=== PATIENT | male | born 1975 | race Caucasian/White ===

== ENCOUNTER 2018-07-26 08:34 | Emergency (ER) | payer MEDICARE, MEDICAID, SELFPAY ==
[2018-07-26 08:36] VITALS: BP 113/82; PULSE 85; RESP 20; TEMP 36.4; O2SAT 98; BMI 22.8
--- NOTE | 2018-07-26 09:19 | NURSING ---
CALLED [facility] FOR DR GALVAN
[2018-07-26 09:35] LABS: Absolute Neutrophil Count 3.9 X10^3/uL (2.0-7.7); Basophil# 0.04 X10^3/uL; Basophil% 0.5 % (0-1); Eosinophil# 0.33 X10^3/uL; Eosinophils% 4.3 % (0-5); Hematocrit 44.2 % (40-54); Hemoglobin 14.4 g/dl (13.0-16.5); Lymphocyte % 34.8 % (19-41); Mean Corp Hgb Conc 32.6 g/gl (32-36); Mean Corpuscular Hgb 29.1 pg (27.0-32.0); Mean Corpuscular Volume 89.3 fL (80-94); Mean Platelet Vol. 9.1 fl (6.2-12.0); Monocyte# 0.74 X10^3/uL; Monocyte% 9.5 % (0-10); Neutrophil # 3.93 X10^3/uL (2.7-7.7); Neutrophil % 50.8 % (47-70); Platelet Count 300 K/mm3 (150-450); RBC Distribution Width CV 15.2 % (11.6-14.6); RBC Distribution Width SD 49.6 fl (35.1-43.9); Red Blood Count 4.95 M/mm3 (4.6-6.2); White Blood Count 7.8 K/mm3 (4.4-11.0)
[2018-07-26 09:37] LABS: POSITIVE COUNT NO; POSITIVE DIFFERENTIAL NO; POSITIVE MORPHOLOGY NO
--- NOTE | 2018-07-26 09:45 | NURSING ---
CALLED [facility] FOR DR GALVAN
[2018-07-26 09:48] LABS: Anion Gap 5 (5-15); BUN 9 mg/dL (7-18); BUN/Creat Ratio 9.8 RATIO (10-20); Calcium,Total 9.2 mg/dL (8.5-10.1); Chloride 108 mmol/L (98-107); Creatinine, Serum 0.92 mg/dL (0.70-1.30); EST Glomerular Filtration Rate 96 mL/min (>60); Est Glom Filt Rate - Afr Amer 117 mL/min (>60); Estimated Creatinine Clearance 105.08 ml/min; Glucose 83 mg/dL (74-106); Potassium 4.1 mmol/L (3.5-5.1); Sodium Level 140 mmol/L (136-145)
--- NOTE | 2018-07-26 11:07 | CM.ED ---
SOCIAL WORK NOTE FOLLOW UP WITH DR. GALVAN REGARDING PT'S VISIT. PER DR. GALVAN, PT HAS FOLLOW UP WITH [facility] THIS DAY AND VOICES NO OTHER FURTHER NEEDS.
--- NOTE | 2018-07-26 11:16 | ED.DCSUM_ITS ---
- ER Visit Summary Date of Service: 07/26/18 Chief Complaint: Medication refill History of Present Illness: The patient is a 42 M who is here from his care home. He recently relocated to a care home in the area. He is out of his medications. He has not established with a local psychiatrist. He takes Latuda 80 mg twice a day with food, benztropine 2 mg at bedtime, buspirone 5 mg 2 tablets twice a day, pantoprazole 40 mg daily, clozapine 100 mg 6 tablets at bedtime, clozapine 25 mg 1 tablet 3 times a day. Physical Examination: Patient is afebrile and vital signs are unremarkable. Alert and appropriate. Heart regular. Lungs clear. Test Results: CBC and BMP unremarkable. Emergency Department Course and Treatment: Patient was discussed with Daniel from crisis counseling. He was able to confirm the patient's medication list and get an appointment for intake today at 1 PM. Patient will be discharged with a 2- week refill of his medications. Treatment Plan: As above Disposition: Discharge Impression: 1. Medication refill This note was generated with [employer] dictation software. It may contain incorrect words, spelling, and punctuation that were not noted in review of the chart prior to signing ED Disposition - Plan for ED Patient: Chief Complaint: Med Refill Referrals: Kermit Baker MD [Primary Care Provider] -
--- NOTE | 2018-07-26 11:17 | ED.DEP ---
ED Disposition - Plan for ED Patient: Chief Complaint: Med Refill Instructions: Med Refill Prescriptions: Benztropine [Cogentin] 2 mg PO QHS #14 tab Clozapine 600 mg PO QHS #84 tab Pantoprazole Sodium 40 mg PO DAILY #14 tablet. busPIRone [Buspar] 10 mg PO BID #56 tab Lurasidone HCl [Latuda] 80 mg PO BID #28 tab Clozapine 25 mg PO TID #42 tab Additional Instructions: follow up today at 1pm as directed by counseling
== END 2018-07-26 11:34 | disposition home or self-care (01) ==
PROVIDERS: Emergency Provider Emergency Medicine; Family Provider Family Medicine; PCP Family Medicine
DX: Z76.0 Encounter for issue of repeat prescription (principal); Z79.899 Other long term (current) drug therapy
CPT/HCPCS: 80048; 85025; 99282

== ENCOUNTER 2018-11-29 10:50 | Emergency (ER) | payer MEDICARE, MEDICAID, SELFPAY ==
[2018-11-29 10:51] VITALS: BP 117/71; PULSE 91; RESP 18; TEMP 36.6; O2SAT 97; BMI 22.2
--- NOTE | 2018-11-29 11:04 | ED.VISSUMM ---
- ER Visit Summary Date of Service: 11/29/18 Chief Complaint: Mental health clearance History of Present Illness: The patient is a 43 M who was living in a detention for psychiatric disease, he left there 2 days ago and has been living on the streets ever since Police Department found today. Patient has no complaints he actually just wants to leave. He is cooperative however, he is lucid and coherent he denies any drug or alcohol use. He tells me he does not want to go back to the detention since they accused him of stuff he did not do. He denies any systemic complaints. Physical Examination: Not appear in acute distress. He is unkept Moist mucous membranes, no obvious facial deformity No C-spine tenderness supple neck. Regular rate and rhythm without any obvious murmurs Clear lungs bilaterally speaking in full sentences without any obvious respiratory distress Abdomen soft and nontender no guarding or rebound Moves all extremities without any difficulty or pain. Skin does not show any obvious rashes or lesions, no trauma. Alert oriented ?3 with no gross focal deficit He has an odd affect, however he is lucid coherent tells me good history of events. He denies any hallucinations. Emergency Department Course and Treatment: Patient will be medically cleared, per detention request. He will be evaluated, at this time I believe the patient to be able to make his own decision, he is lucid coherent he is slightly delusional but has no hallucination has no suicidal homicidal ideation. Plan is to discharge him either to the detention on his own volition. Impression: Bipolar disorder Medical clearance This note was generated with [employer] dictation software. It may contain incorrect words, spelling, and punctuation that were not noted in review of the chart prior to signing ED Disposition - Plan for ED Patient: Referrals: Kermit Baker MD [Primary Care Provider] -
[2018-11-29 11:09] VITALS: RESP 17
--- NOTE | 2018-11-29 11:10 | ED.DCSUM_ITS ---
- ER Visit Summary Date of Service: 11/29/18 Chief Complaint: Mental health clearance History of Present Illness: The patient is a 43 M who was living in a snf for psychiatric disease, he left there 2 days ago and has been living on the streets ever since Police Department found today. Patient has no complaints he actually just wants to leave. He is cooperative however, he is lucid and coherent he denies any drug or alcohol use. He tells me he does not want to go back to the snf since they accused him of stuff he did not do. He denies any systemic complaints. Physical Examination: Not appear in acute distress. He is unkept Moist mucous membranes, no obvious facial deformity No C-spine tenderness supple neck. Regular rate and rhythm without any obvious murmurs Clear lungs bilaterally speaking in full sentences without any obvious respiratory distress Abdomen soft and nontender no guarding or rebound Moves all extremities without any difficulty or pain. Skin does not show any obvious rashes or lesions, no trauma. Alert oriented ?3 with no gross focal deficit He has an odd affect, however he is lucid coherent tells me good history of events. He denies any hallucinations. Emergency Department Course and Treatment: Patient will be medically cleared, per snf request. He will be evaluated, at this time I believe the patient to be able to make his own decision, he is lucid coherent he is slightly delusional but has no hallucination has no suicidal homicidal ideation. Plan is to discharge him either to the snf on his own volition. Impression: Bipolar disorder Medical clearance This note was generated with [employer] dictation software. It may contain incorrect words, spelling, and punctuation that were not noted in review of the chart prior to signing ED Disposition - Plan for ED Patient: Referrals: Kermit Baker MD [Primary Care Provider] -
[2018-11-29 11:22] LABS: Absolute Lymphocyte Count 2.45 X10^3/ul (0.83-4.51); Absolute Neutrophil Count 11.9 X10^3/uL (2.0-7.7); Basophil# 0.04 X10^3/uL; Basophil% 0.3 % (0-1); Eosinophil# 0.29 X10^3/uL; Eosinophils% 1.8 % (0-5); Hematocrit 37.3 % (40-54); Hemoglobin 12.7 g/dl (13.0-16.5); Lymphocyte # 2.45 X10^3/ul (4.0); Lymphocyte % 15.5 % (19-41); Mean Corpuscular Hgb 29.8 pg (27.0-32.0); Mean Corpuscular Volume 87.6 fL (80-94); Mean Platelet Vol. 8.5 fl (6.2-12.0); Monocyte# 1.11 X10^3/uL; Neutrophil % 75.1 % (47-70); Platelet Count 298 K/mm3 (150-450); RBC Distribution Width CV 16.1 % (11.6-14.6); RBC Distribution Width SD 51.3 fl (35.1-43.9); Red Blood Count 4.26 M/mm3 (4.6-6.2); White Blood Count 15.8 K/mm3 (4.4-11.0)
[2018-11-29 11:23] LABS: POSITIVE COUNT NO; POSITIVE DIFFERENTIAL NO; POSITIVE MORPHOLOGY NO
--- NOTE | 2018-11-29 11:33 | CM.ED ---
SOCIAL WORK DISCUSSED CASE WITH NURSE AND DR. MINA. CRISIS TO EVALUATE PATIENT ONCE MEDICALLY CLEARED. NINFA LEUNG, PREVENTIVE MAINTENANCE COORDINATOR, BLENDER MACHINE OPERATOR.
[2018-11-29 11:38] LABS: Anion Gap 5 (5-15); BUN 17 mg/dL (7-18); BUN/Creat Ratio 19.9 RATIO (10-20); Calcium,Total 8.5 mg/dL (8.5-10.1); Chloride 108 mmol/L (98-107); Creatinine, Serum 0.86 mg/dL (0.70-1.30); EST Glomerular Filtration Rate 104 mL/min (>60); Est Glom Filt Rate - Afr Amer 126 mL/min (>60); Estimated Creatinine Clearance 111.27 ml/min; Glucose 110 mg/dL (74-106); Sodium Level 138 mmol/L (136-145)
[2018-11-29 11:47] LABS: Alcohol, Blood (Medical)-Serum < 3.0 mg/dL
[2018-11-29 12:34] LABS: Amphetamine Urine VISTA NEGATIVE (<1000 ng/mL); Barbiturate Urine VISTA NEGATIVE (< 200 ng/mL); Benzodiazepine Urine VISTA NEGATIVE (< 200 ng/mL); Cocaine Urine VISTA NEGATIVE (< 300 ng/mL); Ecstacy Urine VISTA NEGATIVE (< 500 ng/mL); Methadone Urine VISTA NEGATIVE (< 300 ng/mL); PCP Urine VISTA NEGATIVE (< 25 ng/mL); THC Urine VISTA NEGATIVE (< 50 ng/mL); Vista UDS pH Range 6
--- NOTE | 2018-11-29 12:57 | NURSING ---
CALLED [facility], TALKED TO DULCE
--- NOTE | 2018-11-29 13:24 | NURSING ---
DULCE, ANTHONY, CALLED. SHE WILL BE HERE ABOUT 1405
[2018-11-29 14:08] VITALS: RESP 14
--- NOTE | 2018-11-29 14:33 | NURSING ---
1425 DULCE, ANTHONY, HERE
--- NOTE | 2018-11-29 15:34 | ED.DEP ---
ED Disposition - Plan for ED Patient: Disposition: Home or Assisted Living Instructions: ED Schizophrenia General Referrals: Kermit Baker MD [Primary Care Provider] -
== END 2018-11-29 15:37 | disposition home or self-care (01) ==
PROVIDERS: Emergency Provider Emergency Medicine; Family Provider Family Medicine; PCP Family Medicine
DX: F31.9 Bipolar disorder, unspecified (principal); Z72.0 Tobacco use
CPT/HCPCS: 80048; 80307; 80320; 85025; 99285; G0480

== ENCOUNTER 2019-01-01 07:03 | Observation (INO) | payer MEDICARE, MEDICAID, SELFPAY ==
[2019-01-01] VITALS (8 sets, daily range): BP systolic 126–143; BP diastolic 83–93; PULSE 64–90; RESP 13–18; TEMP 36.3–37; O2SAT 92–98; BMI 21.5; BMI 21.2; BMI 21.3
--- NOTE | 2019-01-01 07:25 | RAD_ITS ---
STUDY: X-RAY CHEST REASON FOR EXAM: Male, 43 years old. Cough. TECHNIQUE: AP and lateral views of the chest. COMPARISON: None. FINDINGS: EKG electrodes are seen. Elevation of the right hemidiaphragm. Minimal increased linear markings at the lung bases suggestive of linear atelectasis. There is no demonstrated pleural abnormality. Normal size heart. Normal mediastinum and delroy. Normal visualized pulmonary arteries. Normal visualized aortic arch and descending thoracic aorta. Normal visualized thoracic spine. Normal visualized ribs, clavicles, and shoulders. There is no demonstrated abnormality of the visualized soft tissue structures of the upper abdomen. RAD/Chest PA and Lateral IMPRESSION: Findings suggestive of linear atelectasis at the lung bases. Electronically Signed: Simeon Obando, at 8:26 EDT , Service support ,
--- NOTE | 2019-01-01 07:29 | NURSING ---
CALLED [facility] PER DR PRINGLE
--- NOTE | 2019-01-01 07:43 | CT_ITS ---
STUDY: CT BRAIN WITHOUT CONTRAST REASON FOR EXAM: Male, 43 years old. Confusion. Slurred speech. Altered level of consciousness. RADIATION DOSAGE (If Supplied By Facility): CTDIvol = ( 44.99 ) mGy, DLP = ( 796.11 ) mGycm TECHNIQUE: Transaxial CT imaging of the brain was performed without administration of intravenous contrast material. Individualized dose optimization techniques were used for this CT. COMPARISON: No relevant priors. FINDINGS: Normal soft tissue structures. Normal calvarium. Normal size ventricles and extra-axial spaces for the patient's age. Normal white matter tracts of the cerebral hemispheres. Normal basal ganglia and thalami. Normal brainstem. Normal cerebellum. There is no intracranial hemorrhage. There are no findings of an acute ischemic infarction. Normal visualized paranasal sinuses. CT/Brain/Head without Contrast IMPRESSION: Normal unenhanced CT scan of the brain. Electronically Signed: Simeon Obando, at 8:27 EDT , Service support ,
[2019-01-01 07:52] LABS: Basophil% 0.3 % (0-1); Hematocrit 41.4 % (40-54); Lymphocyte % 16.5 % (19-41); Mean Corp Hgb Conc 33.8 g/gl (32-36); Mean Corpuscular Hgb 30.2 pg (27.0-32.0); Mean Corpuscular Volume 89.2 fL (80-94); Mean Platelet Vol. 8.9 fl (6.2-12.0); Monocyte% 11.5 % (0-10); Neutrophil % 70.5 % (47-70); POSITIVE COUNT NO; POSITIVE DIFFERENTIAL NO; POSITIVE MORPHOLOGY NO; Platelet Count 300 K/mm3 (150-450); RBC Distribution Width CV 15.8 % (11.6-14.6); RBC Distribution Width SD 51.6 fl (35.1-43.9); Red Blood Count 4.64 M/mm3 (4.6-6.2); White Blood Count 11.7 K/mm3 (4.4-11.0)
--- NOTE | 2019-01-01 07:52 | NURSING ---
[facility], [facility], FOR DR PRINGLE
[2019-01-01 07:53] LABS: Absolute Lymphocyte Count 1.93 X10^3/ul (0.83-4.51); Absolute Neutrophil Count 8.2 X10^3/uL (2.0-7.7); Lymphocyte # 1.93 X10^3/ul (4.0); Neutrophil # 8.23 X10^3/uL (2.7-7.7)
[2019-01-01 07:54] LABS: ALB/GLOB Ratio 0.9 RATIO (0.9-2.4); AST(SGOT) 14 U/L (15-37); Alanine Aminotransfer ALT/SGPT 26 U/L (16-61); Albumin, Serum 3.4 g/dL (3.2-5.0); Alkaline Phosphatase 141 U/L (45-117); Anion Gap 5 (5-15); BUN 13 mg/dL (7-18); BUN/Creat Ratio 19.8 RATIO (10-20); Calcium,Total 9.1 mg/dL (8.5-10.1); Chloride 109 mmol/L (98-107); Creatinine, Serum 0.66 mg/dL (0.70-1.30); EST Glomerular Filtration Rate 141 mL/min (>60); Est Glom Filt Rate - Afr Amer 171 mL/min (>60); Estimated Creatinine Clearance 140.32 ml/min; Globulin 3.6 g/dL (2.2-4.2); Glucose 113 mg/dL (74-106); Potassium 3.9 mmol/L (3.5-5.1); Sodium Level 141 mmol/L (136-145)
--- NOTE | 2019-01-01 08:17 | ED.VISSUMM ---
- ER Visit Summary Date of Service: 01/01/19 Chief Complaint: Slurred speech and lethargy History of Present Illness: The patient is a 43 M who goes to the counseling center. He also sees Dr. Baker and Dr. Gan. The patient was living at a shelter until November 29 and has been living on the streets since then. He was at [facility] and last night states that he started a new medication and took his first dose. However, looking at his bubble packs it looks like he has been on these medications for approximately 3 days. Last night he took 600 mg of closet pain and 2 mg of benztropine. He is also supposed to be on 25 mg of clozapine 3 times daily, Latuda, and BuSpar. Staff at [facility] found that the patient was lethargic and had slurred speech this morning. He denies any other complaints. However, he is difficult to understand. Physical Examination: Vitals: Stable. Afebrile. General: Well-nourished and well-developed. Head: Normocephalic atraumatic. Neck: Supple, no lymphadenopathy. No JVD. Nontender. Cardiovascular: Regular rate and rhythm. No murmurs. Respiratory: No respiratory distress. Clear to auscultation bilaterally. Abdominal: Soft, nontender, nondistended, normal bowel sounds. No guarding, rebound, or peritoneal signs. Back: Nontender. Extremities: Nontender, no edema. Skin: Normal color, no rash. Neurologic: Lethargic, but arouses to voice. Moves all extremities well. Normal gait. Test Results: CBC shows a white count of 11.7 with 71 segmented neutrophils, 17 lymphocytes, 12 monocytes. Chem-7 shows a chloride of 109, glucose 113, creatinine 0.66. LFTs show an alk phos of 141 and AST of 14. CT brain shows no acute disease. Chest x-ray shows atelectasis without infiltrate. Alcohol is negative. CTA head is normal. CTA neck is normal. Emergency Department Course and Treatment: Patient has been observed over the course of two hours in the emergency department. He is speech is unchanged. The patient is very difficult to understand. At this time it is unclear whether or not this may be medication induced. There is also the possibility of an expressive a aphasia from a stroke. However, the onset of this is unclear as it was present when he woke. He is not a TPA candidate due to timeframe and the confounding medication issue. Treatment Plan: The patient will be admitted to the hospital for observation and potentially further stroke evaluation. Disposition: Admitted in stable condition. Impression: 1. Slurred speech. This note was generated with [employer] dictation software. It may contain incorrect words, spelling, and punctuation that were not noted in review of the chart prior to signing ED Disposition - Plan for ED Patient: Referrals: Megha Vega MD [Primary Care Provider] -
[2019-01-01 08:37] LABS: Alcohol, Blood (Medical)-Serum < 3.0 mg/dL
--- NOTE | 2019-01-01 09:17 | CT_ITS ---
STUDY: CTA OF THE BRAIN REASON FOR EXAM: Male, 43 years old. Slurred speech. Confusion. RADIATION DOSAGE (If Supplied By Facility): CTDIvol = ( 16.56 ) mGy, DLP = ( 600.60 ) mGycm TECHNIQUE: CT angiography was performed with a multi-detector CT scanner. Data acquisition was obtained from the skull base through the vertex following intravenous administration of 100ML IV Isovue 370. MIP images were reconstructed from the axial data set. Post-processing of the angiographic images was performed, with multiplanar reformation and 3D reconstruction. Individualized dose optimization techniques were used for this CT. COMPARISON: None. FINDINGS: Normal bilateral petrous carotid arteries. There is calcified plaque formation of the right cavernous carotid artery, without a cross-sectional luminal stenosis. Normal left cavernous carotid artery with a normal supraclinoid bifurcation. Normal right A1 segments of the anterior cerebral artery. Normal left A1 segments of the anterior cerebral artery. Normal intact anterior communicating artery (ACOM). Normal bilateral A2 segments of the anterior cerebral arteries. Normal right M1 and M2 segments of the middle cerebral arteries, with a normal M1 bifurcation. Normal left M1 and M2 segments of the middle cerebral arteries, with a normal M1 bifurcation. Normal right posterior communicating artery (PCOM). Normal left posterior communicating artery (PCOM). Normal bilateral vertebral arteries. Normal basilar artery with a normal basilar bifurcation. The visualized bilateral superior cerebellar (SCA) arteries are normal. Normal bilateral P1, P2 and visualized P3 segments of the posterior cerebral arteries. There is no demonstrated aneurysm of the [place]. There is no demonstrated abnormality of the visualized brain. IMPRESSION: Normal [place] without a demonstrated aneurysm or hemodynamically significant stenosis. Electronically Signed: Simeon Obando, at 10:15 EDT , Service support , STUDY: CTA NECK WITH CONTRAST REASON FOR EXAM: Male, 43 years old. Slurred speech. Weakness. RADIATION DOSAGE (If Supplied By Facility): CTDIvol = ( 16.8 ) mGy, DLP = ( 600.60 ) mGycm TECHNIQUE: CT angiography with multi-detector data acquisition was performed from the aortic arch to the skull base following intravenous administration of 100ml IV Isovue 370. MIP images were reconstructed from the axial data set. Post-processing of the angiographic images was performed, with multiplanar reformation and 3D reconstruction. Individualized dose optimization techniques were used for this CT. COMPARISON: None. FINDINGS: AORTIC ARCH: There is mild atherosclerotic calcific plaque formation of the aortic arch and great vessels arising from the aortic arch, without a hemodynamically significant stenosis. There is a normal origin of the brachiocephalic, left common carotid, and left subclavian arteries. RIGHT CAROTID ARTERIES: Normal right common carotid artery (CCA). Normal right common carotid bulb. There is mild atherosclerotic plaque formation of the origin of the right internal carotid artery with less than 50% cross sectional diameter stenosis. Normal visualized cervical portion of the right internal carotid artery. Normal origin of the right external carotid artery (ECA). LEFT CAROTID ARTERIES: Normal left common carotid artery (CCA). Normal left common carotid bulb. Normal origin of the left internal carotid (ICA) artery without a hemodynamically significant stenosis. Normal visualized cervical portion of the left internal carotid artery. Normal origin of the left external carotid artery (ECA). VERTEBRAL ARTERIES: Normal bilateral vertebral arteries. CT/CTA Neck W/WO Contrast IMPRESSION: Minimal atherosclerotic plaque at the origin of the right internal carotid artery. Electronically Signed: Simeon Obando, at 10:18 EDT , Service support ,
--- NOTE | 2019-01-01 09:17 | CT_ITS ---
STUDY: CTA OF THE BRAIN REASON FOR EXAM: Male, 43 years old. Slurred speech. Confusion. RADIATION DOSAGE (If Supplied By Facility): CTDIvol = ( 16.56 ) mGy, DLP = ( 600.60 ) mGycm TECHNIQUE: CT angiography was performed with a multi-detector CT scanner. Data acquisition was obtained from the skull base through the vertex following intravenous administration of 100ML IV Isovue 370. MIP images were reconstructed from the axial data set. Post-processing of the angiographic images was performed, with multiplanar reformation and 3D reconstruction. Individualized dose optimization techniques were used for this CT. COMPARISON: None. FINDINGS: Normal bilateral petrous carotid arteries. There is calcified plaque formation of the right cavernous carotid artery, without a cross-sectional luminal stenosis. Normal left cavernous carotid artery with a normal supraclinoid bifurcation. Normal right A1 segments of the anterior cerebral artery. Normal left A1 segments of the anterior cerebral artery. Normal intact anterior communicating artery (ACOM). Normal bilateral A2 segments of the anterior cerebral arteries. Normal right M1 and M2 segments of the middle cerebral arteries, with a normal M1 bifurcation. Normal left M1 and M2 segments of the middle cerebral arteries, with a normal M1 bifurcation. Normal right posterior communicating artery (PCOM). Normal left posterior communicating artery (PCOM). Normal bilateral vertebral arteries. Normal basilar artery with a normal basilar bifurcation. The visualized bilateral superior cerebellar (SCA) arteries are normal. Normal bilateral P1, P2 and visualized P3 segments of the posterior cerebral arteries. There is no demonstrated aneurysm of the [place] of [place]. There is no demonstrated abnormality of the visualized brain. IMPRESSION: Normal [place] without a demonstrated aneurysm or hemodynamically significant stenosis. Electronically Signed: Simeon Obando, at 10:15 EDT , Service support , STUDY: CTA NECK WITH CONTRAST REASON FOR EXAM: Male, 43 years old. Slurred speech. Weakness. RADIATION DOSAGE (If Supplied By Facility): CTDIvol = ( 16.8 ) mGy, DLP = ( 600.60 ) mGycm TECHNIQUE: CT angiography with multi-detector data acquisition was performed from the aortic arch to the skull base following intravenous administration of 100ml IV Isovue 370. MIP images were reconstructed from the axial data set. Post-processing of the angiographic images was performed, with multiplanar reformation and 3D reconstruction. Individualized dose optimization techniques were used for this CT. COMPARISON: None. FINDINGS: AORTIC ARCH: There is mild atherosclerotic calcific plaque formation of the aortic arch and great vessels arising from the aortic arch, without a hemodynamically significant stenosis. There is a normal origin of the brachiocephalic, left common carotid, and left subclavian arteries. RIGHT CAROTID ARTERIES: Normal right common carotid artery (CCA). Normal right common carotid bulb. There is mild atherosclerotic plaque formation of the origin of the right internal carotid artery with less than 50% cross sectional diameter stenosis. Normal visualized cervical portion of the right internal carotid artery. Normal origin of the right external carotid artery (ECA). LEFT CAROTID ARTERIES: Normal left common carotid artery (CCA). Normal left common carotid bulb. Normal origin of the left internal carotid (ICA) artery without a hemodynamically significant stenosis. Normal visualized cervical portion of the left internal carotid artery. Normal origin of the left external carotid artery (ECA). VERTEBRAL ARTERIES: Normal bilateral vertebral arteries. CT/CTA Head W/WO Contrast IMPRESSION: Minimal atherosclerotic plaque at the origin of the right internal carotid artery. Electronically Signed: Simeon Obando, at 10:18 EDT , Service support ,
--- NOTE | 2019-01-01 09:35 | NURSING ---
DR MILIAN FOR DR PRINGLE
--- NOTE | 2019-01-01 09:46 | NURSING ---
pcu altered mental status, slurred speech ashelfah
--- NOTE | 2019-01-01 09:46 | ED.RN ---
SPOKE TO PATIENT ACCOUNTS CLERKNKECHI MAGDALENO ABOUT MR BHATIA. PATIENT ACCOUNTS CLERKNKECHI MAGDALENO IS POA FOR MR BHATIA. PER FARHANA MAGDALENO PT HAS BEEN OFF OF MEDS FOR A LONG TIME AND WAS UNSURE OF WHEN PT STARTED TAKING THEM AGAIN. SHARLA IS OK WITH PT BEING ADMITTED.
--- NOTE | 2019-01-01 10:24 | CM.ED ---
Social Work Discussed case with Dr. Evangelista, patient to be admitted to acute for observation. Polo BETHEA, ZOE
--- NOTE | 2019-01-01 11:43 | MRI_ITS ---
STUDY: MRI BRAIN WITHOUT CONTRAST REASON FOR EXAM: Male, 43 years old. Aphasia, slurred speech, tardive dyskinesia TECHNIQUE: Standardized multiplanar fat and water weighted pulse sequences were obtained. COMPARISON: None. FINDINGS: Normal size of the ventricles and extra-axial spaces for the patient's age. Normal white matter tracts of the supratentorial brain. Normal bilateral basal ganglia. Normal thalami. There is no extra-axial fluid accumulation. Diffusion weighted sequence is normal. There is no MRI evidence for acute infarct Normal flow voids within the major intracranial circulation suggesting patency by spin echo criteria. Normal sella turcica, pituitary gland, infundibular stalk, optic chiasm and hypothalamus. Normal tectal plate and pineal gland. Normal midbrain, milagro and medulla. Normal cerebellum. Normal basal cisterns. Normal bilateral temporal bones. Normal bilateral internal auditory canals. No demonstrated orbital abnormality, within the constraints of a routine brain study. Normal visualized paranasal sinuses. Normal calvarium and skull base. Normal visualized soft tissue structures. Normal visualized upper cervical spine. There are small mastoid effusions. MRI/Brain without Contrast IMPRESSION: Normal unenhanced MRI of the brain. Small mastoid effusions Electronically Signed: Blaine Shafer, at 17:44 EDT Tel , Service support ,
--- NOTE | 2019-01-01 12:09 | EKG12_ITS ---
Test Reason : ARRHYTHMIA Blood Pressure : / mmHG Vent. Rate : 068 BPM Atrial Rate : 068 BPM P-R Int : 136 ms QRS Dur : 092 ms QT Int : 406 ms P-R-T Axes : 061 062 048 degrees QTc Int : 431 ms Normal sinus rhythm Normal ECG No previous ECGs available Confirmed by GUILLERMO MACHUCA, FAM ([id number]), graphics editor TATY SEBASTIAN ([id number]) on 01/08/2019 6:51:09 AM Referred By: RUKHSANA Confirmed By:ELIZABETH LI MD
--- NOTE | 2019-01-01 12:18 | PCM.HP.STD ---
Problem List (1) Tardive dyskinesia Status: Suspected (2) GERD (gastroesophageal reflux disease) Status: Chronic (3) Bipolar disorder Status: Chronic (4) Schizophrenia Status: Chronic History of Present Illness Date of Admission: 01/01/19 Chief Complaint: Lethargy, slurred speech. The patient is a 43 year old M with past medical history as mentioned above presented to the emergency room from the [facility] because of lethargy and slurred speech. At this time, patient is having slurred speech and he is very difficult to understand. Reportedly according to ER physician, patient was living at the snf until November 29 and since then, he has been on the streets. Last night, he was at the [facility] and according to the patient, he took 600 mg of clozapine and 2 mg of benzo atropine today at the [facility], staff noted that patient is lethargic, sleepy and having slurred speech. At this time, is very difficult to understand. He denied blurred vision, numbness or tingling. He denied focal arm or leg weakness. He has history of schizophrenia and he has been on clozapine. He has history of bipolar disorder and he has been on BuSpar and Latuda. He had a history of GERD and he has been on Protonix twice daily. In the emergency department, his vital signs were stable. His routine blood work was unremarkable except for minimal leukocytosis. LFT was normal. Chest x-ray showed no acute findings. CT brain showed no acute infarction or hemorrhage. CTA of the head and neck revealed no evidence of hemodynamically significant vascular disease or stenosis, no acute stroke. He is being admitted for suspected tardive dyskinesia, dysarthria/left facial droop with concern of TIA versus acute stroke. Past Medical History Past Medical History (Chronic Problems): Chronic Problems GERD (gastroesophageal reflux disease) (Chronic) Bipolar disorder (Chronic) Schizophrenia (Chronic) Allergies No Known Allergies Allergy (Verified 01/01/19 09:59) Home Medications: Ambulatory Orders Medication Instructions Recorded Clozapine 25 mg PO TID #42 tab 07/26/18 Clozapine 600 mg PO QHS #84 tab 07/26/18 Lurasidone HCl [Latuda] 80 mg PO BID #28 tab 07/26/18 busPIRone [Buspar] 10 mg PO BID #56 tab 07/26/18 Pantoprazole Sodium 40 mg PO BID 11/29/18 Surgical History: noncontributory Psychiatric History: Bipolar, Schizophrenia Lives: Homeless Smoking Status: Current every day smoker Tobacco Use: Cigarettes Alcohol: None Drugs: None - *Family History Maternal History Items: No pertinent history Paternal History Items: No pertinent history Review of Systems Constitutional: Denies: Anorexia, Chills, Fever, Weakness Eyes: Denies: Blurred vision, Double vision, Drainage, Redness HEENT: Denies: Difficulty Hearing, Ear Pain, Eye Pain, Nasal Congestion, Sore Throat Cardiovascular: Denies: Chest Pain, Chest Pressure, Edema, Heaviness, Light Headedness, Palpitations, Syncope Respiratory: Denies: Cough, Pleuritic Pain, Shortness of Breath, Sputum production, Wheezing Gastrointestinal: Denies: Abdominal Pain, Constipation, Diarrhea, Nausea, Vomiting Genitourinary: Denies: Dysuria, Frequency, Hematuria Musculoskeletal: Denies: Arm Pain, Back Pain, Foot Pain Skin: Denies: Dryness, Rash Neurological: Reports: Change in Speech, Slurred speech. Denies: Balance problems, Blurred vision, Double vision, Confusion, Focal weakness, Headaches, Incoordination Psychiatric: Denies: Homicidal Ideations, Suicidal Ideations Endocrine: Denies: Change in Body Habitus, Polyuria VTE Information - Inpt Only VTE Present on Admission: No VTE Mechan Device Prophylaxis: None VTE Pharm Prophylaxis ordered?: No Patient Problems: Active and Suspected Problems Tardive dyskinesia (Suspected) - Physical Exam General: Alert, Oriented x3, Cooperative, - - Difficult to understand. HEENT: Atraumatic, PERRLA, EOMI, Normocephalic Oral: Moist Mucosa, No Gingival or Mucosal Lesions/ Ulcerations, - - Jerky movement of the tongue. Neck: Supple, No JVD, Negative Carotid Bruits, Trachea Midline, Thyroid Normal Size and Texture Lungs: Clear to auscultation, Normal air movement, No rhonchi, No wheeze, No rales Cardiovascular: Regular rate, Regular Rhythm, Normal S1, Normal S2, No murmurs, PMI Normal Abdomen: Bowel Sounds Present, Soft, Non Tender, Non-Distended, No Hepato-splenomegaly Extremities: No clubbing, No cyanosis, No edema Skin: No rashes, No breakdown Lymphatic: No Cervical, Supraclavicular, or Inguinal Adenopathy Neurological: Cranial nerves II-XII grossly intact, Motor Exam 5/5 strength throughout, - - Minimal left-sided facial droop, dysarthria. Psych/Mental Status: Normal Affect, Appropriate Vital Signs Temp Pulse Resp BP Pulse Ox 97.4 F L 73 18 140/93 H 94 01/01/19 12:10 01/01/19 12:10 01/01/19 12:10 01/01/19 12:10 01/01/19 12:10 Oxygen Delivery Method Room Air Weight: 143 lb 15.39 oz Body Mass Index (BMI) 21.2 Laboratory Tests Past 24 Hrs 01/01/19 01/01/19 01/01/19 07:15 07:15 07:15 WBC 11.7 H RBC 4.64 Hgb 14.0 Hct 41.4 MCV 89.2 MCH 30.2 MCHC 33.8 RDW 15.8 H RDW Differential 51.6 H Plt Count 300 MPV 8.9 Immature Gran % (Auto) 0.200 Neut % (Auto) 70.5 H Lymph % (Auto) 16.5 L Eaton % (Auto) 11.5 H Eos % (Auto) 1.0 Baso % (Auto) 0.3 Absolute Neuts (auto) 8.2 H Absolute Lymphs (auto) 1.93 Total Counted Not Reportable Sodium 141 Potassium 3.9 Chloride 109 H Carbon Dioxide 27.0 Anion Gap 5 BUN 13 Creatinine 0.66 L Estim Creat Clear Calc 140.32 Est GFR (MDRD) Af Amer 171 Est GFR (MDRD) Non-Af 141 BUN/Creatinine Ratio 19.8 Glucose 113 H Calcium 9.1 Total Bilirubin 0.20 AST 14 L ALT 26 Alkaline Phosphatase 141 H Total Protein 7.0 Albumin 3.4 Globulin 3.6 Albumin/Globulin Ratio 0.9 Ethyl Alcohol < 3.0 Clinical Impression(s) from Imaging Studies Chest X-Ray 01/01/19 07:25 IMPRESSION: Findings suggestive of linear atelectasis at the lung bases. Electronically Signed: Simeon Obando, at 8:26 EDT , Service support , Brain CT 01/01/19 07:43 IMPRESSION: Normal unenhanced CT scan of the brain. Electronically Signed: Simeon Obando, at 8:27 EDT , Service support , Head CTA 01/01/19 09:17 IMPRESSION: Minimal atherosclerotic plaque at the origin of the right internal carotid artery. Electronically Signed: Simeon Obando, at 10:18 EDT , Service support , Assessment/Plan This is a 43 years old male patient admitted because of lethargy and slurred speech, took 600 mg of clozapine last night and he is being admitted for suspected tardive dyskinesia, dysarthria/left facial droop with concern for TIA versus acute stroke. #1 dysarthria/minimal left facial droop: Suspected tardive dyskinesia secondary to clozapine. Patient does have jerking movement of the tongue and he mentioned that he does have this problem whenever he takes the clozapine. He does have obvious left facial droop. No focal arm or leg weakness. He has no risk factors for stroke. CT scan brain showed no acute findings. CTA of the head and neck was unremarkable. Routine blood work was unremarkable except for minimal leukocytosis. LFT was normal. Blood alcohol level was less than 3. Plan: Admit to PCU for observation, cardiac monitoring, NIH stroke scale every 4 hours x3, MRI brain, hold clozapine, start melatonin and vitamin B6 to treat tardive dyskinesia, urine drug screen, PT OT evaluation and treatment. At this time, acute stroke is less likely and there is no need to pursue full stroke work-up, no indication to start aspirin on Lipitor. #2 schizophrenia/bipolar disorder: Hold clozapine, BuSpar and Latuda. #3 GERD: Continue Protonix. #4 DVT prophylaxis: Low risk patient, no prophylaxis indicated. This note was generated with mascotsecret dictation software. It may contain incorrect words, spelling, and punctuation that were not noted in checking the note before signing. Code Visit OBSV E&M: 20736 Initial observation care L3
[2019-01-01] MEDS: Dextrose 5%/0.9% NaCl 1,000 ML 100 ML IV (12:53)
[2019-01-01 13:34] LABS: Amphetamine Urine VISTA NEGATIVE (<1000 ng/mL); Barbiturate Urine VISTA NEGATIVE (< 200 ng/mL); Benzodiazepine Urine VISTA NEGATIVE (< 200 ng/mL); Cocaine Urine VISTA NEGATIVE (< 300 ng/mL); Ecstacy Urine VISTA NEGATIVE (< 500 ng/mL); Methadone Urine VISTA NEGATIVE (< 300 ng/mL); PCP Urine VISTA NEGATIVE (< 25 ng/mL); THC Urine VISTA NEGATIVE (< 50 ng/mL); Vista UDS pH Range 6
--- NOTE | 2019-01-01 15:31 | NURSING ---
skin photo: left lateral heel
--- NOTE | 2019-01-01 15:32 | NURSING ---
skin photo: right heel
[2019-01-02] MEDS: Dextrose 5%/0.9% NaCl 1,000 ML 100 ML IV ×2 (00:02→10:30)
[2019-01-02 02:30] VITALS: BP 114/87; PULSE 79; RESP 18; TEMP 36.9; O2SAT 96
[2019-01-02 02:37] VITALS: O2SAT 96
[2019-01-02 03:00] VITALS: PULSE 79
[2019-01-02 06:44] LABS: Basophil# 0.03 X10^3/uL; Basophil% 0.2 % (0-1); Eosinophil# 0.28 X10^3/uL; Hematocrit 42.5 % (40-54); Hemoglobin 14.1 g/dl (13.0-16.5); Mean Corp Hgb Conc 33.2 g/gl (32-36); Mean Corpuscular Hgb 29.6 pg (27.0-32.0); Mean Corpuscular Volume 89.3 fL (80-94); Mean Platelet Vol. 8.9 fl (6.2-12.0); Monocyte# 1.74 X10^3/uL; Monocyte% 12.1 % (0-10); Neutrophil # 9.96 X10^3/uL (2.7-7.7); Neutrophil % 69.5 % (47-70); Platelet Count 319 K/mm3 (150-450); RBC Distribution Width CV 16.3 % (11.6-14.6); RBC Distribution Width SD 52.6 fl (35.1-43.9); Red Blood Count 4.76 M/mm3 (4.6-6.2); White Blood Count 14.3 K/mm3 (4.4-11.0)
[2019-01-02 06:46] LABS: Differential Indicated SCAN CRITERIA MET; POSITIVE COUNT NO; POSITIVE DIFFERENTIAL YES; POSITIVE MORPHOLOGY NO
[2019-01-02 06:56] LABS: Anion Gap 8 (5-15); BUN 10 mg/dL (7-18); BUN/Creat Ratio 16.9 RATIO (10-20); Calcium,Total 8.7 mg/dL (8.5-10.1); Chloride 112 mmol/L (98-107); Creatinine, Serum 0.59 mg/dL (0.70-1.30); EST Glomerular Filtration Rate 159 mL/min (>60); Est Glom Filt Rate - Afr Amer 192 mL/min (>60); Estimated Creatinine Clearance 150.65 ml/min; Glucose 85 mg/dL (74-106); Potassium 3.8 mmol/L (3.5-5.1); Sodium Level 145 mmol/L (136-145)
[2019-01-02 07:25] VITALS: PULSE 69
[2019-01-02 08:35] VITALS: BP 117/75; PULSE 70; RESP 14; TEMP 36.6; O2SAT 96
[2019-01-02] MEDS: Pyridoxine HCl 100 MG Tablet PO (10:30)
[2019-01-02] MEDS: Pantoprazole Sodium 40 MG Tablet PO (10:30)
--- NOTE | 2019-01-02 10:43 | CASEMGMT ---
Patient will be discharged today. BREANNE called [facility] [employer] and patient is allowed to return. SW asked and their residents are responsible for their own medications. BREANNE called patient's guardian Josué Jarrell's office. BREANNE spoke with his head start assistant teacher and patient's Typesetting Machine Operator/Tender through [facility] is Antelmo Adamson. He is also working with [employer] on housing. BREANNE let her know patient is being discharged today. BREANNE called Antelmo Adamson and left him a voice mail letting him know patient is being discharged today and BREANNE also asked that he call BREANNE back. BREANNE would like to address with Antelmo that his medications have been changed and patient may need assistance with organizing changes. Await return call. Roula ENRIQUEZ MSW
--- NOTE | 2019-01-02 10:54 | DCINST_ITS ---
- Discharge Diagnoses Current Active Problems: Current Active and Chronic Problems GERD (gastroesophageal reflux disease) (Chronic) Bipolar disorder (Chronic) Schizophrenia (Chronic) You will use the following diet at home:: Regular Your food should be the consistency of: Regular Discharge Activity: Return to Normal Activity Weight Bearing Status: Full weight bearing Call your doctor if you observe: Fever of 101 or Higher, Shortness of breath, Dizziness, Fainting spells, Chest pain, Increased palpitations (irregular heartbeat), Uncontrolled pain Allergies/Adverse Reactions: Allergies No Known Allergies Allergy (Verified 01/01/19 09:59) Medications to take at Discharge Clozapine 25 mg PO TID #42 tab 07/26/18 Lurasidone HCl [Latuda] 80 mg PO BID #28 tab 07/26/18 busPIRone [Buspar] 10 mg PO BID #56 tab 07/26/18 Pantoprazole Sodium 40 mg PO BID 11/29/18 Primary Care Physician: Megha Vega MD [NON-STAFF] - Please follow up with your Primary Care Physician in: 3-5 days Test Results: Test results from this visit will be discussed in further detail at your follow- up appointment, if applicable.
--- NOTE | 2019-01-02 12:13 | NURSING ---
called guardian for dc instructions given number for Antelmo Adamson to pick patient up left message and spoke with secretasry and told of dc
--- NOTE | 2019-01-02 14:47 | DS.PCM_ITS ---
Discharge Date and Diagnosis - Problem List Patient Problems: Active and Suspected Problems Tardive dyskinesia (Suspected) Date of Admission: 01/01/19 Date of Discharge: 01/02/19 - Primary Discharge Diagnosis Active and Suspected Problems #1 tardive dyskinesia secondary to clozapine. #2 dysarthria/minimal left facial droop, attributed to tardive dyskinesia, acute stroke ruled out. - Secondary Discharge Diagnosis Chronic Problems GERD (gastroesophageal reflux disease) (Chronic) Bipolar disorder (Chronic) Schizophrenia (Chronic) Hospital Course and Treatment Imaging Results: Clinical Impression(s) from Imaging Studies Chest X-Ray 01/01/19 07:25 IMPRESSION: Findings suggestive of linear atelectasis at the lung bases. Electronically Signed: Simeon Obando, at 8:26 EDT , Service support , Brain CT 01/01/19 07:43 IMPRESSION: Normal unenhanced CT scan of the brain. Electronically Signed: Simeon Obando, at 8:27 EDT , Service support , Head CTA 01/01/19 09:17 IMPRESSION: Minimal atherosclerotic plaque at the origin of the right internal carotid artery. Electronically Signed: Simeon Obando, at 10:18 EDT , Service support , Neck CTA 01/01/19 09:17 IMPRESSION: Minimal atherosclerotic plaque at the origin of the right internal carotid artery. Electronically Signed: Simeon Obando, at 10:18 EDT , Service support , Brain MRI 01/01/19 11:43 IMPRESSION: Normal unenhanced MRI of the brain. Small mastoid effusions Electronically Signed: Blaine Shafer, at 17:44 EDT Tel , Service support , Consultations 01/01/19 14:44 Consult: Onc/Wound/melter caster Routine Comment: Procedures: None Summary of Care Provided: Patient seen and examined on the day of discharge and appeared to be stable to be discharged home. His speech started to clear up, speech is now understandable. Patient feels better. His symptoms attributed to the higher dose of clozapine that he received the night before admission. His vital signs are stable. The patient is a 43 year old M referred to ED from the [facility] because staff noticed that the patient has slurred speech and he was lethargic. There was a concern that the patient may have acute stroke. Apparently, patient took 600 mg of clozapine the night before admission. He has a history of schizophrenia and he supposed to be on clozapine 25 mg p.o. 3 times daily in addition to 600 mg nightly. Reportedly, patient did not take his clozapine for the last couple of weeks and he received 600 mg the night before admission at the [facility]. Next morning, patient noted to be having slurred speech and he was lethargic. Patient was sent to ED for evaluation. CT scan brain without contrast showed no acute infarct or hemorrhage. CTA of the head and neck showed no evidence of hemodynamically significant vascular disease or stenosis. MRI brain also performed and showed no acute infarction or hemorrhage. Patient did have jerking movement of the tongue consistent with tardive dyskinesia. Clozapine held during this admission and patient was treated with melatonin and vitamin B6. Acute stroke ruled out. Today, patient symptoms improved, his speech was more understandable and he was able to eat and drink safely. Patient discharged back to [facility] in a stable medical condition, continued on clozapine 25 mg p.o. 3 times daily, night dose of clozapine of 600 mg discontinued, continued on BuSpar and Latuda, recommended to follow-up with psychiatry in 3 to 5 days. Patient Problems: Active and Suspected Problems Tardive dyskinesia (Suspected) - Physical Exam General: Alert, Oriented x3, Cooperative, No apparent distress HEENT: Atraumatic, PERRLA, EOMI, Normocephalic Oral: Moist Mucosa, No Gingival or Mucosal Lesions/ Ulcerations Neck: Supple, No JVD, Negative Carotid Bruits, Trachea Midline, Thyroid Normal Size and Texture Lungs: Clear to auscultation, Normal air movement, No rhonchi, No wheeze, No rales Cardiovascular: Regular rate, Regular Rhythm, Normal S1, Normal S2, PMI Normal Abdomen: Bowel Sounds Present, Soft, Non Tender, Non-Distended, No Hepato- splenomegaly Extremities: No clubbing, No cyanosis, No edema Skin: No rashes, No breakdown Lymphatic: No Cervical, Supraclavicular, or Inguinal Adenopathy Neurological: Cranial nerves II-XII grossly intact, Motor Exam 5/5 strength throughout, Slurred Speech - Improved. Psych/Mental Status: Normal Affect, Appropriate, Alert and oriented to time, place, person, mood and affect Vital Signs Temp Pulse Resp BP Pulse Ox 97.8 F 70 14 117/75 96 01/02/19 08:35 01/02/19 08:35 01/02/19 08:35 01/02/19 08:35 01/02/19 08:35 Oxygen Delivery Method Room Air Weight: 143 lb 15.39 oz Body Mass Index (BMI) 21.2 Intake and Output for Last 24 Hours 12/31/18 01/01/19 01/02/19 23:59 23:59 23:59 Intake Total 348 / 970 3510 / 3510 Output Total 900 / 900 2050 / 2050 Balance -552 / 70 1460 / 1460 Laboratory Tests Past 24 Hrs 01/02/19 01/02/19 06:10 06:10 WBC 14.3 H RBC 4.76 Hgb 14.1 Hct 42.5 MCV 89.3 MCH 29.6 MCHC 33.2 RDW 16.3 H RDW Differential 52.6 H Plt Count 319 MPV 8.9 Immature Gran % (Auto) 0.200 Neut % (Auto) 69.5 Lymph % (Auto) 16.0 L Benson % (Auto) 12.1 H Eos % (Auto) 2.0 Baso % (Auto) 0.2 Absolute Neuts (auto) 10.0 H Absolute Lymphs (auto) 2.30 Total Counted Not Reportable Sodium 145 Potassium 3.8 Chloride 112 H Carbon Dioxide 25.0 Anion Gap 8 BUN 10 Creatinine 0.59 L Estim Creat Clear Calc 150.65 Est GFR (MDRD) Af Amer 192 Est GFR (MDRD) Non-Af 159 BUN/Creatinine Ratio 16.9 Glucose 85 Calcium 8.7 Discharge Activity: Return to Normal Activity Weight Bearing Status: Full weight bearing Call your doctor if you observe: Fever of 101 or Higher, Shortness of breath, Dizziness, Fainting spells, Chest pain, Increased palpitations (irregular heartbeat), Uncontrolled pain Home Medications: Medications to take at Discharge Clozapine 25 mg PO TID #42 tab 07/26/18 Lurasidone HCl [Latuda] 80 mg PO BID #28 tab 07/26/18 busPIRone [Buspar] 10 mg PO BID #56 tab 07/26/18 Pantoprazole Sodium 40 mg PO BID 11/29/18 Primary Care Physician: Megha Vega MD [NON-STAFF] - Please follow up with your Primary Care Physician in: 3-5 days Disposition: Home Minutes spent on discharge:: 26 Patient Condition:: Stable Medical Necessity - Tobacco Use Smoking Status: Current every day smoker Tobacco Use: Cigarettes Meaningful Use Info Meaningful Use Diagnoses (Choose all that apply): None applicable Code Visit OBSV E&M: 07088 Observation care discharge
== END 2019-01-02 10:54 | disposition home or self-care (01) ==
LOC: ED 10:24 → PCU 11:30
PROVIDERS: Admitting Provider Internal Medicine; Emergency Provider Emergency Medicine; Visit Provider Hospitalist
DX: G24.01 Drug induced subacute dyskinesia (principal); T42.4X5A Adverse effect of benzodiazepines, initial encounter; Y92.9 Unspecified place or not applicable; F41.9 Anxiety disorder, unspecified; K21.9 Gastro-esophageal reflux disease without esophagitis; F20.9 Schizophrenia, unspecified; Z79.899 Other long term (current) drug therapy; F17.210 Nicotine dependence, cigarettes, uncomplicated; Z59.0 Homelessness
CPT/HCPCS: 36415; 70450; 70496; 70498; 70551; 71046; 80048; 80053; 80307; 80320; 82140; 85025; 92526; 92610; 93005; 96360; 96361; 97802; 99218; 99285; 99406; Q9967; A4216; G0378; G0480